=== PATIENT | female | born 1965 ===

== ENCOUNTER 2022-04-21 13:24 | Outpatient (CLI) | payer BC | END 2022-04-21 13:25 | disposition home or self-care (01) | LOC: BICMAMMO 13:24 | PROVIDERS: ATTEND Family Medicine | DX: Z12.31 Encounter for screening mammogram for malignant neoplasm of breast (principal) | CPT/HCPCS: 77063; 77067 ==

== ENCOUNTER 2025-05-21 13:14 | Outpatient (CLI) | payer OTHER | END 2025-05-21 13:15 | disposition home or self-care (01) | LOC: SCSRAD 13:14 | PROVIDERS: ATTEND Family Medicine | DX: M25.522 Pain in left elbow (principal); M19.022 Primary osteoarthritis, left elbow; M25.422 Effusion, left elbow ==